=== PATIENT | female | born 1985 | race Hispanic/Latino ===

== ENCOUNTER 2017-06-27 08:16 | Emergency (ER) | payer OTHER, SELFPAY | END 2017-06-27 09:06 | disposition home or self-care (01) | LOC: EDH 08:16 | DX: L02.214 Cutaneous abscess of groin (principal); M54.9 Dorsalgia, unspecified; Z88.0 Allergy status to penicillin | CPT/HCPCS: 10060 ==

== ENCOUNTER 2017-07-23 18:41 | Emergency (ER) | payer OTHER, SELFPAY ==
[2017-07-23] MEDS ORDERED: HYOSCYAMINE SULFATE 0.125 MG TAB.SUBL SL ONE (19:57)
[2017-07-23] MEDS ORDERED: ONDANSETRON HCL MDV 20ML 2 MG/ML VIAL ONE (20:14)
[2017-07-23] MEDS ORDERED: SODIUM CHLORIDE 0.9% 1000ML 1,000 ML IV ONE (20:14)
[2017-07-23 20:15] LABS: APPEARANCE,URINE Clear (CLEAR); BASOPHILS % (AUTO) 0.2 % (0.0-5.0); BILIRUBIN,URINE Negative (NEGATIVE); COLOR,URINE Yellow (YELLOW); EOSINOPHILS % (AUTO) 6.1 % (0.0-8.0); GLUCOSE, URINE (UA) Negative (NEGATIVE); HEMATOCRIT 38.9 % (36-48); KETONES,URINE Negative (NEGATIVE); LEUKOCYTE ESTERASE ,URINE Negative (NEGATIVE); LYMPHOCYTES % (AUTO) 21.1 % (21.0-51.0); MEAN CORPUSCULAR HEMOGLOBIN 29.2 pg (27.0-33.0); MEAN CORPUSCULAR HGB CONC 33.6 g/dL (32.0-36.0); MEAN CORPUSCULAR VOLUME 86.7 fL (79-99); MONOCYTES % (AUTO) 3.7 % (3.0-13.0); NEUTROPHILS % (AUTO) 68.9 % (40.0-77.0); NITRATE,URINE Negative (NEGATIVE); OCCULT BLOOD,URINE Trace (NEGATIVE); PLATELET COUNT (AUTO) 364 K/uL (130-400); PROTEIN,URINE Negative (NEGATIVE); RED BLOOD CELL COUNT(AUTO) 4.48 MIL/uL (4.00-5.50); RED CELL DISTRIBUTION WIDTH 13.4 % (11.0-15.5); UROBILINOGEN,URINE 0.2 mg/dL (0.2-1.0); WHITE BLOOD COUNT (AUTO) 9.6 K/uL (4.8-10.8)
[2017-07-23 20:16] LABS: HCG,QUAL RESULT NEGATIVE (NEGATIVE)
[2017-07-23 20:27] LABS: BACTERIA,URINE Rare /HPF (None Seen); CREATININE 0.7 mg/dL (0.5-1.5); POTASSIUM 3.4 mmol/L (3.5-5.1); RBC,URINE 0-1 /HPF (0-1); SQUAMOUS EPITHELIAL CELL,UR 0-2 /HPF (0-2); WBC,URINE None Seen /HPF (0-1)
[2017-07-23 20:33] LABS: ALBUMIN 4.1 g/dL (3.5-5.0); BILIRUBIN,TOTAL 0.4 mg/dL (0.2-1.0); TOTAL PROTEIN, SERUM 8.9 g/dL (6.0-8.3)
== END 2017-07-23 21:25 | disposition home or self-care (01) ==
LOC: EDH 18:41
DX: K52.9 Noninfective gastroenteritis and colitis, unspecified (principal); Z88.0 Allergy status to penicillin
CPT/HCPCS: 36415; 80053; 81001; 81025; 85025; 96361; 96374; 99284; J7030

== ENCOUNTER 2017-07-26 19:06 | Emergency (ER) | payer OTHER, SELFPAY ==
[2017-07-26] MEDS ORDERED: SODIUM CHLORIDE 0.9% 1000ML 1,000 ML IV ONE (19:35)
[2017-07-26 19:40] LABS: BASOPHILS % (AUTO) 0.4 % (0.0-5.0); EOSINOPHILS % (AUTO) 10.6 % (0.0-8.0); HEMATOCRIT 37.9 % (36-48); LYMPHOCYTES % (AUTO) 18.7 % (21.0-51.0); MEAN CORPUSCULAR HEMOGLOBIN 29.3 pg (27.0-33.0); MEAN CORPUSCULAR HGB CONC 33.8 g/dL (32.0-36.0); MEAN CORPUSCULAR VOLUME 86.7 fL (79-99); MONOCYTES % (AUTO) 4.2 % (3.0-13.0); NEUTROPHILS % (AUTO) 66.1 % (40.0-77.0); PLATELET COUNT (AUTO) 377 K/uL (130-400); RED BLOOD CELL COUNT(AUTO) 4.37 MIL/uL (4.00-5.50); RED CELL DISTRIBUTION WIDTH 13.7 % (11.0-15.5); WHITE BLOOD COUNT (AUTO) 9.5 K/uL (4.8-10.8)
[2017-07-26 19:50] LABS: CREATININE 0.8 mg/dL (0.5-1.5); POTASSIUM 3.6 mmol/L (3.5-5.1)
[2017-07-26 19:54] LABS: BILIRUBIN,TOTAL 0.3 mg/dL (0.2-1.0); TOTAL PROTEIN, SERUM 8.8 g/dL (6.0-8.3)
== END 2017-07-26 21:02 | disposition home or self-care (01) ==
LOC: EDH 19:06
DX: K52.9 Noninfective gastroenteritis and colitis, unspecified (principal); R11.2 Nausea with vomiting, unspecified; Z88.0 Allergy status to penicillin; Z98.890 Other specified postprocedural states
CPT/HCPCS: 36415; 74176; 80053; 84703; 85025; 96360; 99285; J7030

== ENCOUNTER 2024-04-16 01:36 | Emergency (ER) | payer OTHER, SELFPAY ==
[~2024-04-16] VITALS: Ht 157.5 cm; Wt 89.1 kg
--- NOTE | 2024-04-16 01:40 | NUR ---
UA CUP PROVIDED
--- NOTE | 2024-04-16 01:40 | NUR ---
LAST PO INTAKE 1300 LAST BM YESTERDAY 04/15/24, "NORMAL"
--- NOTE | 2024-04-16 01:41 | NUR ---
REPORT TO YAMILET LINDSEY
[2024-04-16 02:07] LABS: BASOPHILS # (AUTO) 0.05 K/uL (0.00-0.20); BASOPHILS % (AUTO) 0.3 % (0.0-5.0); EOSINOPHILS # (AUTO) 0.06 K/uL (0.00-0.70); EOSINOPHILS % (AUTO) 0.3 % (0.0-8.0); HEMATOCRIT 35.9 % (36-48); IMMATURE GRANULOCYTE ABSOLUTE 0.08 K/uL (0-1); LYMPHOCYTES # (AUTO) 2.2 K/uL (1.0-4.8); LYMPHOCYTES % (AUTO) 12.3 % (21.0-51.0); MEAN CORPUSCULAR HEMOGLOBIN 29.6 pg (27.0-33.0); MEAN CORPUSCULAR HGB CONC 33.4 g/dL (32.0-36.0); MEAN CORPUSCULAR VOLUME 88.6 fL (79-99); MONOCYTES # (AUTO) 0.6 K/uL (0.1-1.0); MONOCYTES % (AUTO) 3.5 % (3.0-13.0); NEUTROPHILS # (AUTO) 14.8 K/uL (1.8-7.7); NEUTROPHILS % (AUTO) 83.2 % (40.0-77.0); PLATELET COUNT (AUTO) 307 K/uL (130-400); RED BLOOD CELL COUNT(AUTO) 4.05 MIL/uL (4.00-5.50); RED CELL DISTRIBUTION WIDTH 12.6 % (11.0-15.5); WHITE BLOOD COUNT (AUTO) 17.8 K/uL (4.8-10.8)
[2024-04-16 02:18] LABS: CREATININE 0.7 mg/dL (0.5-1.0); POTASSIUM 3.5 mmol/L (3.5-5.1)
--- NOTE | 2024-04-16 02:18 | ERN ---
ED Note History of Present Illness Stated Complaint: ABD PAIN Chief Complaint: Abdominal Pain Time Seen by MD: 02:03 Dictation: This is a 38-year-old female who presented to the emergency room with complaints of suprapubic pain radiating to the right part of the abdomen that started last night. She denied any diarrhea nausea vomitings hematemesis or melena. She denied any dysuria hematuria.Last menstrual period April 05. Patient also had bowel movements twice even while she was in the ER. No diarrhea. No history of any previous kidney stones. No vaginal bleeding or discharge. Temperature 97.8 pulse 76 respirations 16 blood pressure 133/74 with a pulse oximetry of 98% on room air Allergies: Coded Allergies: Penicillins (Unverified Allergy, Unknown, 04/16/24) hydrocodone (Unverified Allergy, Unknown, 04/16/24) Past Medical History Past Medical History: No Pertinent History Surgical History: Family History: Negative Social History: Negative History: Not Applicable LMP: Apr 05, 2024 RN Note Reviewed/Agreed w/PFSH: Yes Review of System Dictation Constitutional: Negative for fever,chills, and weight loss Eyes: Negative for injury, pain,redness, and discharge ENT: Negative for injury,pain or swelling Cardiovascular: Negative for chest pain, palpitations, and edema Respiratory: Negative for shortness of breath, cough, and wheezing, Abdomen/GI: Positive for abdominal pain, denies nausea, vomiting, diarrhea, and constipation Back: Negative for injury and pain : Negative for injury, bleeding and discharge MS/Extremity: Negative for injury and deformity Skin: Negative for rash, and discoloration Neuro: Negative for headache, weakness, numbness, tingling, and seizure Psych: Negative for suicide ideation, homicidal ideation, and hallucinations Initial Vital Sign VS Vital Signs Date Time Temp Pulse Resp B/P (MAP) Pulse Ox O2 Delivery O2 Flow Rate FiO2 04/16/24 01:38 97.9 76 16 133/74 98 Room Air 04/16/24 01:55 0 21 Physical Exam Dictation General: awake, alert, NAD uncomfortable from pain and rubbing her lower abdomen Head/Face: Normocephalic, atraumatic Eyes: PERRL, EOMI, vision at baseline ENT: oral cavity clear, TMs clear, no signs of infection Neck: Trachea midline, supple, no nuchal rigidity Cardiovascular: RRR, normal S1/S2, No MRGs, no JVD Respiratory: CTAB, no respiratory distress, No rales or wheezes Abdomen: Soft, positive-tenderness hypogastric area right and left lower quadrants, non-distended, normal bowel sounds, no guarding or rebound. Skin: Warm, dry, normal turgor, no rash MS/Extremity: Pulses equal, no cyanosis, neurovascular intact, FROM Neuro: COAx4, GCS 15, strength 5/5, CN 2-12 intact, normal cerebellar exam, normal gait, Psych: Normal behavior, mood, and affect normal Extremities-trace edema without any palpable cords, Homans sign is negative Results (Laboratory/Radiology) Laboratory/Radiology Laboratory Tests Test 04/16/24 01:52 04/16/24 01:57 White Blood Count 17.8 K/uL (4.8-10.8) H Red Blood Count 4.05 MIL/uL (4.00-5.50) Hemoglobin 12.0 g/dL (12.0-16.0) Hematocrit 35.9 % (36-48) L Mean Corpuscular Volume 88.6 fL (79-99) Mean Corpuscular Hemoglobin 29.6 pg (27.0-33.0) Mean Corpuscular Hemoglobin Concent 33.4 g/dL (32.0-36.0) Red Cell Distribution Width 12.6 % (11.0-15.5) Platelet Count 307 K/uL (130-400) Mean Platelet Volume 9.3 fL (7.5-10.5) Immature Granulocyte % (Auto) 0.4 % (0-1) Neutrophils (%) (Auto) 83.2 % (40.0-77.0) H Lymphocytes (%) (Auto) 12.3 % (21.0-51.0) L Monocytes (%) (Auto) 3.5 % (3.0-13.0) Eosinophils (%) (Auto) 0.3 % (0.0-8.0) Basophils (%) (Auto) 0.3 % (0.0-5.0) Neutrophils # (Auto) 14.8 K/uL (1.8-7.7) H Lymphocytes # (Auto) 2.2 K/uL (1.0-4.8) Monocytes # (Auto) 0.6 K/uL (0.1-1.0) Eosinophils # (Auto) 0.06 K/uL (0.00-0.70) Basophils # (Auto) 0.05 K/uL (0.00-0.20) Absolute Immature Granulocyte (auto 0.08 K/uL (0-1) Nucleated Red Blood Cells 0.0 % (0.0-0.19) Sodium Level 136 mmol/L (136-145) Potassium Level 3.5 mmol/L (3.5-5.1) Chloride Level 100 mmol/L (101-111) L Carbon Dioxide Level 28 mmol/L (21-32) Blood Urea Nitrogen 8 mg/dL (7-18) Creatinine 0.7 mg/dL (0.5-1.0) Glomerular Filtration Rate Calc 113 mL/min (>90) Random Glucose 115 mg/dL (70-105) H Total Calcium 9.2 mg/dL (8.5-10.1) Total Bilirubin 0.5 mg/dL (0.2-1.0) Direct Bilirubin 0.1 mg/dL (0.0-0.3) Aspartate Amino Transf (AST/SGOT) 28 U/L (10-37) Alanine Aminotransferase (ALT/SGPT) 34 U/L (12-78) Alkaline Phosphatase 67 U/L (50-136) Total Protein 8.0 g/dL (6.0-8.3) Albumin 3.7 g/dL (3.5-5.0) Lipase 41 U/L (16-77) Serum Test, Qualitative NEGATIVE (NEGATIVE) Urine Color LIGHT-YELLOW (YELLOW) Urine Appearance CLEAR (CLEAR) Urine pH 7.0 (5.0-8.0) Urine Specific [place] 1.009 (1.001-1.031) Urine Protein NEGATIVE mg/dL (NEGATIVE) Urine Glucose (UA) NEGATIVE mg/dL (NEGATIVE) Urine Ketones NEGATIVE mg/dL (NEGATIVE) Urine Occult Blood SMALL (NEGATIVE) H Urine Nitrate NEGATIVE (NEGATIVE) Urine Bilirubin NEGATIVE mg/dL (NEGATIVE) Urine Urobilinogen 0.2 mg/dL (0.2-1.0) Urine Leukocyte Esterase NEGATIVE Ty/uL Urine RBC 2-5 /HPF (0-1) H Urine WBC 2-5 /HPF (0-1) H Urine Squamous Epithelial Cells RARE /HPF (0-2) Urine Bacteria None /HPF (None Seen) Labs Reviewed?: Yes ED Course ED Course Orders Procedure Category Date Status Time Cbc With Differential LAB 04/16/24 Complete 01:43 Basic Metabolic Panel LAB 04/16/24 Complete 01:43 Urinalysis Profile LAB 04/16/24 Complete 01:43 Lipase LAB 04/16/24 Complete 01:43 Testing, LAB 04/16/24 Complete Serum Hcg 01:44 Hepatic Function Panel LAB 04/16/24 Complete 02:43 Ct Abd/Pel Wo Con CT 04/16/24 Taken Renal/Appy 02:59 Ceftriaxone 1g Vial PHA 04/16/24 In Process (Rocephine 1g Inj) 05:00 Current Medications Medications (Trade) Dose Ordered Sig/Perico Route PRN Reason Start Time Stop Time Status Last Admin Dose Admin Ceftriaxone Sodium (ROCEphine 1G INJ) 1 gm ONCE ONCE IVPB 04/16/24 05:00 04/16/24 05:01 Vital Signs Date Time Temp Pulse Resp B/P (MAP) Pulse Ox O2 Delivery O2 Flow Rate FiO2 04/16/24 04:17 98.2 74 19 134/72 97 Room Air* 0 21 04/16/24 01:55 98.4 76 18 130/68 98 Room Air* 0 21 04/16/24 01:38 97.9 76 16 133/74 98 Room Air We will perform diagnostic labs, advanced imaging and administer medications according to the patient's complaint. Once the results are available, will review and personally interpreted the labs to rule out any acute life- threatening emergency the trach require immediate intervention and treatment. I will then re-evaluate the patient after treatment and diagnostic exams have return to determine whether the patient requires any further testing, can safely be discharged home or need further admission to hospital for additional treatment and evaluation. CBC showed a white count of 17.8 BNP 7 negative lipase normal urine test is negative urinalysis showed small amount of blood but otherwise no evidence of any infection. CT scan of the abdomen and pelvis to evaluate for any nephrolithiasis: Appendix are all pending. She declined any pain control and stated that she was fine 4:[address] scan of the abdomen and pelvis Stat Rad reading showed minimal nonspecific fat stranding anterior to the bladder of doubtful significance. Bladder is otherwise unremarkable normal kidneys and appendix no other acute abnormalities were noted. I updated the patient on the CT scan findings and it is unclear if the patient still has cystitis or bruising inflammation with a fat stranding even though the urinalysis is not significant for acute infection; I suggested that it would be reasonable to give her a dose of antibiotic and she was agreeable Medical Decision Making MDM MDM: Differential diagnosis: Cystitis, pelvic inflammatory disease, endometritis, intrauterine , ectopic Rationale: Tests considered and ordered secondary to shared decision making include: Previous outside records reviewed: Old ER visits. Risk of complication and/or morbidity or mortality of patient management: None Medications-Per medication reconciliation Need for hospitalization: Patient does not meet criteria for hospitalization. Need for emergency major/minor surgery: No There are no social concerns with this patient. Prescription drug management Prescriptions will include symptomatic care Patient's prior external medical records from other ER visits were reviewed by me as indicated. Prior testing and results from previous visits were reviewed. Prior tests were taken into account with medical decision making and resource utilization, independent historian/historians were used to obtain complete medical history. I independently interpreted the test that were performed, results were reviewed by me and considered findings on radiology if ordered. Medical management and examination interpretation discussions were had by me with other qualified healthcare professionals as indicated for the patient's care. Problem List Problem List: (1) Cystitis (2) Lower abdominal pain DX & DISP Disposition: Discharge Departure Impression: Primary Impression: Lower abdominal pain Additional Impression: Cystitis Condition: Stable Additional Instructions: Patient and the caregiver have been informed of all the diagnostic tests and the imaging conducted during the today's visit to the emergency room and has verbalized understanding of the results I have personally reviewed and interpreted all diagnostic exams performed here in the ER today as well as the vital signs documented by the nursing staff. The patient is now being discharged to home and should follow up with the primary care physician or the specialist as directed by the ER staff. Follow-up with primary care provider in 1 to 2 days. Take medications as directed here in the emergency room. Okay to continue home medications unless otherwise discussed during your visit in the emergency room today. Return to your nearest emergency room if symptoms worsen or if there is no improvement. Call 911 if you need immediate assistance. Take Tylenol or Motrin over-the-c ounter as needed and if no contraindications are present. Increase oral hydration. A wound culture or urine culture was ordered here in the emergency room department please follow-up with primary care provider and advise them to get repeat ports from our facility. If you had any Jorje wrap/splints that were applied here, please do not remove them until you see your primary care or specialty. Referrals: SELF,REFERRAL (PCP) DAPHNE MAGAÑA MD Apr 16, 2024 02:18
[2024-04-16 02:21] LABS: APPEARANCE,URINE CLEAR (CLEAR); BILIRUBIN,URINE NEGATIVE (NEGATIVE); COLOR,URINE LIGHT-YELLOW (YELLOW); GLUCOSE, URINE (UA) NEGATIVE (NEGATIVE); KETONES,URINE NEGATIVE (NEGATIVE); LEUKOCYTE ESTERASE ,URINE NEGATIVE Leu/uL (NEGATIVE); NITRATE,URINE NEGATIVE (NEGATIVE); OCCULT BLOOD,URINE SMALL (NEGATIVE); PROTEIN,URINE NEGATIVE (NEGATIVE); UROBILINOGEN,URINE 0.2 mg/dL (0.2-1.0)
[2024-04-16 02:26] LABS: ADD UA MICROSCOPIC YES
[2024-04-16 02:28] LABS: SQUAMOUS EPITHELIAL CELL,UR RARE /HPF (0-2)
[2024-04-16 03:43] LABS: ALBUMIN 3.7 g/dL (3.5-5.0); BILIRUBIN,DIRECT 0.1 mg/dL (0.0-0.3); BILIRUBIN,TOTAL 0.5 mg/dL (0.2-1.0)
[2024-04-16 04:17] VITALS: BP 134/72; PULSE 74; RESP 19; TEMP 98.2; O2SAT 97
[2024-04-16] MEDS ORDERED: cefTRIAXone 1G VIAL IVPB ONE (05:00)
--- NOTE | 2024-04-16 08:40 | HMCIMG ---
CT ABD/PEL WO CON RENAL/APPY HISTORY: Pubic pain COMPARISON: 07/26/2012 TECHNIQUE: Multiple sequential axial images of the abdomen and pelvis were obtained from the dome of the diaphragm through symphysis pubis. Patient was not given contrast through intravenous route. Oral contrast was not given. FINDINGS: No pleural effusion is seen bilaterally. There is no evidence of parenchymal disease or pulmonary nodule of the visualized lower lungs. Degenerative changes of the thoracolumbar spine are present. The heart is not enlarged. Liver measures 16 cm with fatty changes. Gallbladder is contracted. There are bilateral renal cortical scarring. The liver, spleen, adrenal glands and pancreas are unremarkable. There is no evidence of hydronephrosis bilaterally. No evidence of renal stone is seen. Fecal material is seen in the colon. There are normal size retroperitoneal and mesenteric lymph nodes. No ascites is seen. Atherosclerotic changes are present. Pelvic sidewalls are symmetric bilaterally. Bladder is poorly distended with wall thickening. If there is clinical suspicion for cystitis, urinalysis correlation may be helpful. Uterus has irregular contour. If needed, pelvic ultrasound study may BE helpful. IMPRESSION: 1. Bladder is poorly distended with wall thickening. If there is clinical suspicion for cystitis, urinalysis correlation may be helpful. Uterus has irregular contour. If needed, pelvic ultrasound study may BE helpful. CT was performed with one or more following dose reduction techniques: automated exposure control, adjustment of the mA and kv according to patient's size, or use of a iterative reconstruction technique.
== END 2024-04-16 05:06 | disposition home or self-care (01) ==
LOC: EDH 01:36
DX: R10.30 Lower abdominal pain, unspecified (principal); N30.90 Cystitis, unspecified without hematuria; Z88.0 Allergy status to penicillin; Z88.5 Allergy status to narcotic agent
CPT/HCPCS: 36415; 74176; 80048; 80076; 81001; 83690; 84703; 85025; 99284; J0696